=== PATIENT | female | born 1955 | race Caucasian/White ===

== ENCOUNTER 2020-08-29 09:56 | Outpatient (REF) | payer MEDICARE, SELFPAY ==
--- NOTE | 2020-08-29 10:03 | MM_ITS ---
EXAMINATION: MM SCREENING DIGITAL BREAST TOMOSYNTHESIS, BILATERAL CLINICAL INFORMATION: Screening. Asymptomatic. The lifetime risk of breast cancer based on the Tyrer-Cuzick Model is 3%. COMPARISON: Mammography: 06/27/2019, 06/23/2018, 05/01/2017, 04/16/2016, 03/28/2015 TECHNIQUE: Digital breast tomosynthesis is performed in both the craniocaudal and mediolateral oblique views along with computer-aided detection (CAD). Synthesized 2D images are generated from the tomosynthesis. FINDINGS: There are scattered areas of fibroglandular density (ACR BI-RADS breast composition Category b). There are no significant masses, abnormal calcifications, or other abnormalities. There is chronic nodular asymmetry posterior upper outer right breast similar to prior studies dating back to 2014. No developing density. The axilla and skin contours are unremarkable. MM/MM tomosynthesis screening BI IMPRESSION: No significant changes from prior studies. ASSESSMENT: BI-RADS 2: Benign RECOMMENDATION: Routine annual mammography screening. This patient's information was entered into a reminder system with a target due date for their next mammogram.
== END 2020-08-29 09:57 | disposition home or self-care (01) ==
LOC: HO.MAMMO 09:56
PROVIDERS: PCP Pediatrics; Visit Provider Pediatrics
DX: Z12.31 Encounter for screening mammogram for malignant neoplasm of breast (principal)
CPT/HCPCS: 77063; 77067

== ENCOUNTER 2021-09-10 07:56 | Outpatient (REF) | payer MEDICARE, SELFPAY ==
--- NOTE | ~2021-09-10 | MM_ITS ---
EXAMINATION: MM SCREENING DIGITAL BREAST TOMOSYNTHESIS, BILATERAL CLINICAL INFORMATION: Screening. Asymptomatic. The lifetime risk of breast cancer based on the Tyrer-Cuzick Model is 3%. COMPARISON: Mammography: 08/29/2020, 06/27/2019, 06/23/2018, 05/01/2017, 04/16/2016 TECHNIQUE: Digital breast tomosynthesis is performed in both the craniocaudal and mediolateral oblique views along with computer-aided detection (CAD). Synthesized 2D images are generated from the tomosynthesis. FINDINGS: There are scattered areas of fibroglandular density (ACR BI-RADS breast composition Category b). There is a fine fibronodular parenchymal pattern similar to prior exams. Chronic smooth nodular asymmetry again noted posterior upper outer right breast. There is no interval dominant nodule, architectural abnormality, developing density. No abnormal calcifications. The axilla and skin contours are unremarkable. No significant changes. MM/MM tomosynthesis screening BI IMPRESSION: No mammographic evidence of malignancy. ASSESSMENT: BI-RADS 2: Benign RECOMMENDATION: Routine annual mammography screening. This patient's information was entered into a reminder system with a target due date for their next mammogram.
== END 2021-09-10 07:57 | disposition home or self-care (01) ==
LOC: HO.MAMMO 07:56
PROVIDERS: PCP Pediatrics; Visit Provider Pediatrics
DX: Z12.31 Encounter for screening mammogram for malignant neoplasm of breast (principal)
CPT/HCPCS: 77063; 77067

== ENCOUNTER 2022-03-27 08:45 | Outpatient (REF) | payer MEDICARE, SELFPAY ==
--- NOTE | ~2022-03-27 | MM_ITS ---
EXAMINATION: BONE DENSITOMETRY CLINICAL INDICATION: Menopausal. COMPARISON: Previous BD dated 03/21/2020 and baseline BD dated 12/25/2006. TECHNIQUE: Using a [employer] DXA System (software version: 13.1) manufactured by [employer]), dual-energy x-ray absorptiometry was performed of the lumbar spine and left hip. The images are of good technical quality. Summary results are attached. FINDINGS: AP SPINE L1-L3 (excluding L4): The data of L1-L4 has been changed to exclude the L4 vertebral body, because hardware at this level may cause overestimation of lumbar spine density. Current: BMD 0.870 g/cm2, Z-score -0.5, T-score -2.5, osteoporosis, 4.2% decrease from previous, 4.2% decrease from baseline (<5% change is not significant). Prior: BMD 0.908 g/cm2. Baseline: BMD 0.908 g/cm2. LEFT FEMUR, NECK: Current: BMD 0.641 g/cm2, Z-score -1.1, T-score -2.9, osteoporosis. Prior: BMD 0.683 g/cm2. Baseline: BMD 0.737 g/cm2. LEFT FEMUR, TOTAL: Current: BMD 0.698 g/cm2, Z-score -0.9, T-score -2.5, osteoporosis, 7.5% decrease from previous, 10.1% decrease from baseline (<5% change is not significant). Prior: BMD 0.755 g/cm2. Baseline: BMD 0.776 g/cm2. IDENTIFIED RISK FACTORS: Osteoporosis, family history (parental hip fracture). Early menopause, secondary osteoporosis, hysterectomy, bilateral oophorectomy. HISTORY OF FRACTURE: None listed. MEDICATIONS: Calcium supplements or multivitamin, vitamin D. MM/XR DEXA axial skeleton IMPRESSION: 1. DIAGNOSIS: Osteoporosis based on the lowest T-score value of -2.9 in the femoral neck applying World Health Organization criteria. 2. 10-YEAR FRACTURE RISK PREDICTION, FRAX: According to the guidelines, FRAX calculation should only be performed on patients in the osteopenia bone density category. Therefore, FRAX was not performed on this patient. 3. Treatment Recommendations: NOF guidelines recommend consideration for treatment in postmenopausal women and men age 50 and older presenting with the following: -A hip or vertebral (clinical or morphometric) fracture. -T-score less than or equal to -2.5 at the femoral neck or spine after appropriate evaluation to exclude secondary causes. -Low bone mass at the hip or spine and a 10-year fracture probability by FRAX of greater than or equal to 3% for hip fracture or greater than or equal to 20% for major osteoporotic fracture based on the [place] adapted WHO algorithm. 4. Other Recommendations: All treatment decisions require clinical judgment and consideration of individual patient factors, including patient preferences, comorbidities, previous drug use, risk factors not captured in the FRAX model (e.g. frailty, falls, vitamin D deficiency, increased bone turnover, interval significant decline in bone density) and possible under or overestimation of fracture risk by FRAX. Additional medical evaluation for secondary cause of low bone mineral density may be appropriate. FUTURE SCAN RECOMMENDATION: People with diagnosed cases of osteoporosis or at high risk for fracture should have regular bone mineral density tests. For patients eligible for Medicare, routine testing is allowed once every 2 years. The testing frequency can be increased to one year for patients who have rapidly progressing disease, those who are receiving or discontinuing medical therapy to restore bone mass, or have additional risk factors.
== END 2022-03-27 08:46 | disposition home or self-care (01) ==
LOC: HO.MAMMO 08:45
PROVIDERS: PCP Pediatrics; Visit Provider Emergency Medicine
DX: Z13.820 Encounter for screening for osteoporosis (principal); M81.0 Age-related osteoporosis without current pathological fracture; Z78.0 Asymptomatic menopausal state
CPT/HCPCS: 77080

== ENCOUNTER 2022-09-17 09:07 | Outpatient (REF) | payer MEDICARE, SELFPAY ==
--- NOTE | ~2022-09-17 | MM_ITS ---
EXAMINATION: MM SCREENING DIGITAL BREAST TOMOSYNTHESIS, BILATERAL CLINICAL INFORMATION: Screening. Asymptomatic. The lifetime risk of breast cancer based on the Tyrer-Cuzick Model is 3%. COMPARISON: Mammography: 09/10/2021, 08/29/2020, 06/27/2019, 06/23/2018 TECHNIQUE: Digital breast tomosynthesis is performed in both the craniocaudal and mediolateral oblique views along with computer-aided detection (CAD). Synthesized 2D images are generated from the tomosynthesis. FINDINGS: There are scattered areas of fibroglandular density (ACR BI-RADS breast composition Category b). Breast tissue composition borders on heterogeneously dense. There is fine fibronodular parenchymal pattern similar to prior studies. No significant mass or developing density or architectural abnormality. No abnormal calcifications. There is chronic stable nodule posterior upper outer right breast on MLO view. Nodular asymmetry posterior lower outer right breast on CC view is slightly decreased. The axilla and skin contours are unremarkable. No significant changes. MM/MM tomosynthesis screening BI IMPRESSION: No mammographic evidence of malignancy. ASSESSMENT: BI-RADS 2: Benign RECOMMENDATION: Routine annual mammography screening. This patient's information was entered into a reminder system with a target due date for their next mammogram.
== END 2022-09-17 09:08 | disposition home or self-care (01) ==
LOC: HO.MAMMO 09:07
PROVIDERS: Visit Provider Pediatrics
DX: Z12.31 Encounter for screening mammogram for malignant neoplasm of breast (principal)
CPT/HCPCS: 77063; 77067

== ENCOUNTER → 2023-10-05 08:45 | Outpatient (BNV) | payer MEDICARE, SELFPAY | PROVIDERS: PCP Pediatrics; Visit Provider Radiology Diagnostic Radiology | DX: Z12.31 Encounter for screening mammogram for malignant neoplasm of breast (principal) | CPT/HCPCS: 77063; 77067 ==

== ENCOUNTER 2023-10-05 08:46 | Outpatient (REF) | payer MEDICARE, SELFPAY | END 2023-10-05 08:47 | disposition home or self-care (01) | LOC: HO.MAMMO 08:46 | PROVIDERS: PCP Pediatrics; Visit Provider Pediatrics | DX: Z12.31 Encounter for screening mammogram for malignant neoplasm of breast (principal) | CPT/HCPCS: 77063; 77067 ==

== ENCOUNTER 2024-07-13 08:38 | Outpatient (REF) | payer MEDICARE, SELFPAY ==
--- NOTE | ~2024-07-13 | MM_ITS ---
EXAMINATION: BONE DENSITOMETRY CLINICAL INDICATION: Age-related osteoporosis without current pathological fracture. COMPARISON: Previous BD dated 03/27/2022 and baseline BD dated 12/25/2006. TECHNIQUE: Using a [employer] DXA System (software version: 13.1) manufactured by [employer], dual-energy x-ray absorptiometry was performed of the lumbar spine and left hip. The images are of good technical quality. Summary results are attached. FINDINGS: LEFT FEMUR, NECK: Current: BMD 0.619 g/cm2, Z-score -1.2, T-score -3.0, osteoporosis. Prior: BMD 0.641 g/cm2. Baseline: BMD 0.737 g/cm2. LEFT FEMUR, TOTAL: Current: BMD 0.663 g/cm2, Z-score -1.2, T-score -2.7, osteoporosis, 5.0% decrease from previous, 14.6% decrease from baseline (<5% change is not significant). Prior: BMD 0.698 g/cm2. Baseline: BMD 0.776 g/cm2. AP SPINE L1-L3 (excluding L4): The data of L1-L4 has been changed to exclude the L4 vertebral body, because hardware at this level may cause overestimation of lumbar spine density. Current: BMD 0.899 g/cm2, Z-score -0.4, T-score -2.3, osteopenia, 3.3% increase from previous, 1.0% decrease from baseline (<5% change is not significant). Prior: BMD 0.870 g/cm2. Baseline: BMD 0.908 g/cm2. IDENTIFIED RISK FACTORS: Osteoporosis, parental hip fracture. Early menopause, secondary osteoporosis, hysterectomy, bilateral oophorectomy. HISTORY OF FRACTURE: None listed. MEDICATIONS: Calcium supplements or multivitamin, vitamin D. MM/XR DEXA axial skeleton IMPRESSION: 1. DIAGNOSIS: Osteoporosis based on the lowest T-score value of -3.0 in the femoral neck applying World Health Organization criteria. 2. 10-YEAR FRACTURE RISK PREDICTION, FRAX: According to the guidelines, FRAX calculation should only be performed on patients in the osteopenia bone density category. Therefore, FRAX was not performed on this patient. 3. Treatment Recommendations: NOF guidelines recommend consideration for treatment in postmenopausal women and men age 50 and older presenting with the following: -A hip or vertebral (clinical or morphometric) fracture. -T-score less than or equal to -2.5 at the femoral neck or spine after appropriate evaluation to exclude secondary causes. -Low bone mass at the hip or spine and a 10-year fracture probability by FRAX of greater than or equal to 3% for hip fracture or greater than or equal to 20% for major osteoporotic fracture based on the [place] adapted WHO algorithm. 4. Other Recommendations: All treatment decisions require clinical judgment and consideration of individual patient factors, including patient preferences, comorbidities, previous drug use, risk factors not captured in the FRAX model (e.g. frailty, falls, vitamin D deficiency, increased bone turnover, interval significant decline in bone density) and possible under or overestimation of fracture risk by FRAX. Additional medical evaluation for secondary cause of low bone mineral density may be appropriate. FUTURE SCAN RECOMMENDATION: People with diagnosed cases of osteoporosis or at high risk for fracture should have regular bone mineral density tests. For patients eligible for Medicare, routine testing is allowed once every 2 years. The testing frequency can be increased to one year for patients who have rapidly progressing disease, those who are receiving or discontinuing medical therapy to restore bone mass, or have additional risk factors. Electronically signed by: Linda Yepez MD 07/13/2024 11:53 AM DON[facility]
== END 2024-07-13 08:39 | disposition home or self-care (01) ==
LOC: HO.MAMMO 08:38
PROVIDERS: PCP Pediatrics; Visit Provider Pediatrics
DX: M81.0 Age-related osteoporosis without current pathological fracture (principal)
CPT/HCPCS: 77080

== ENCOUNTER 2024-10-26 08:14 | Outpatient (REF) | payer MEDICARE, SELFPAY ==
--- OUTSIDE RECORDS SUMMARY | 2024-10-26 08:36 | XMS_ITS | Data Portability ---
Author Organization [facility], [facility] Address [address] [place] [address] Care Team Providers Care Appointment Specialist Name Role Phone CINTHYA POOL Primary Care Provider Assessment Encounter Date Assessment Date Assessment LastModified by Organization Details LastModified Time 04/21/2024 04/21/2024 CHIEF COMPLAINT: Postop left foot HISTORY OF PRESENT ILLNESS: Priscilla is a very pleasant 68-year-old woman who is 6 weeks status post ORIF of left fifth metatarsal base fracture with plate screw construct. She is doing very well. She has been nonweightbearing in a tall CAM boot, crutches. She denies any fevers, chills or paresthesias. She has some numbness around the incision over the lateral aspect of her foot. She also has some swelling that improves with elevation. She otherwise has no complaints. Past family, medical, social history and review of systems has been reviewed and is located in the patient? s chart. PHYSICAL EXAM: Musculoskeletal: With boot removed, her incision is well-healed. There is mild swelling without infectious changes. There is diminished sensation over the incision and just distal to the incision and she is otherwise distally neurovascularly intact. Hardware is not prominent or tender. There is no gross motion about the fracture site. Her calf is soft and nontender. X-RAYS: Three standing views of the left foot were ordered, obtained and reviewed by me today at [facility], demonstrating interval healing of her fifth metatarsal base fracture such that the fracture line is a longer visible. Hardware is intact and well positioned. IMPRESSION: 6 weeks postop, doing well PLAN: She is doing very well at this time. I reassured her that her swelling will improve with time. She may begin to weight-bear in the boot as tolerated. She may transition from the boot to a sneaker in 1-2 weeks as comfort and swelling allow. She understands to avoid any running or jumping activity until after follow-up in 7-8 weeks. She will need repeat x-rays on arrival. She will work on ankle, hindfoot and MTP range of motion exercises, which were demonstrated today. All questions were answered. She understands and agrees with this plan. [email or web address] Not available 04/21/2024 15:03:02 09/30/2024 09/30/2024 ICD-10: Left foot prominent fifth metatarsal hardware, bilateral hallux valgus CHIEF COMPLAINT: Left foot pain HISTORY OF PRESENT ILLNESS: Priscilla is a very pleasant 69-year-old woman seen today in follow-up who is almost 7 months status post ORIF of left fifth metatarsal base fracture with plate and screw construct. She is doing very well. She comes in today as she is concerned that her hardware is somewhat prominent and that there may be a screw loose. She denies any injury. She reports intermittent 3/10 pain. She has bilateral severe bunions but denies significant pain over her medial eminences. She feels her bunions cause her to walk differently and put more weight on her fifth metatarsals. She is here today for repeat x-rays and reassurance. She has been active. Past family, medical, social history and review of systems has been reviewed, updated and is located in the patient? s chart. She has osteopenia. PHYSICAL EXAM: General: healthy appearing, in no acute distress Psych: alert and oriented x3, normal mood Skin: intact without ulceration or lesion, normal turgor Lungs: respirations unlabored Cardiac: heart rate regular, normal peripheral pulses Musculoskeletal: On standing exam, she has bilateral moderate to severe hallux valgus deformities. On seated exam, she has a well-healed lateral fifth metatarsal base incision. Hardware is prominent and minimally tender. I do not feel any prominence individual screws. She has normal function of her peroneal tendons with full strength with resisted hindfoot eversion. Her hallux valgus deformity is partially passively correctable. There is a prominent medial eminence without significant tenderness. She is distally neurovascularly intact. X-RAYS: Three standing views of the left foot were ordered, obtained and reviewed by me today at [facility], demonstrating healed fifth metatarsal base fracture with bridging bone, intact well positioned hardware. I see no evidence of any interval loosening or change in position of her hardware. She has a severe incongruent hallux valgus deformity with widened SOFIE and lateral sesamoid subluxation IMPRESSION: Left foot prominent fifth metatarsal hardware, bilateral hallux valgus PLAN: I discussed these findings with the patient. Her hardware is prominent as this is a subcutaneous area but I do not believe any of her screws have backed out. She is happy to hear this and like to continue with observation/conser vative treatment. If her hardware becomes more bothersome, I would recommend hardware removal. If her bunions become more bothersome, I would recommend either MTP fusion or a Lapidus procedure, 1 foot at a time. This was discussed with her today. I discussed with her the nature and magnitude of the surface. She would be able to weight-bear in a CAM boot following hardware removal surgery. All questions were answered. [email or web address] Not available 09/30/2024 10:18:28 Plan of Treatment Reminders Order Date Submit Date Provider Last Modified By Organization Details Last Modified Time Details Appointments None recorded. Lab None recorded. Referral None recorded. Procedures None recorded. Surgeries None recorded. Imaging XR, foot, 3 or more view - RM 108 -- RECHECK 3V FOOT WB 025 025 [facility], [address], [place], [address], 5 10:56:48 XR, foot, 3 or more view - 316 3v left foot 024 024 [place] [address] CPM [facility], [address], [address], [place], [address], 4 12:37:13 XR, foot, 3 or more view - RM 108--post op 3V FOOT WB 024 024 [facility], [address], [place], [address], 4 08:39:34 XR, foot, 3 or more view - rm 316 3v left foot 024 024 [email or web address] [facility], [address], [facility] [address], [place], [address], 14:21:48 Medication Orders None recorded. Patient TargetsNo targets recorded. Patient Instructions Encounter Date Encounter Id Patient Instructions Last Modified By Organization Details Last Modified Time 03/11/2024 [id number] application of splint, short leg* - rm 316 left short leg splint with side posterior nwb xeroform on inscision [email or web address] Not available 03/11/2024 16:41:04 Reason for Referral None Reported. Results Created Date Observation Date Name Description Value Unit Range Abnormal Flag Note LastModifiedBy Organization Detail LastModifiedTime 03/07/20 24 03/04/2024 imagi ng inter preta tion No observ ation record ed. [email or web address] [address], [address], 03/07/2024 09:46:52 03/07/20 24 03/04/2024 imagi ng inter preta tion No observ ation record ed. [email or web address] [address], [address], 03/07/2024 09:46:42 03/07/20 24 03/04/2024 emerg ency dept. visit * No observ ation record ed. [address], [address], 03/07/2024 11:00:42 03/08/20 24 03/04/2024 XR, foot, 3 or more view No observ ation record ed. [email or web address] Not Available 2023 07:28:40 03/11/20 24 03/11/2024 XR, foot, 3 or more view [email or web address] ?Encry pted=s hAaTro YD8dLq bEUv6g %2BXZw aYqtaq 0bqfl% 2Fg9IQ a4ajBk vP9nXo QUaueC m3YtLR FvZlgJ JJ8mAn HZtai3 5w2619 AC0Koa 3qAVqv eUC8mr 84%3D INTERFACE [facility] [address], [place], [address], 03/11/2024 14:29:50 03/11/20 24 03/11/2024 XR, foot, 3 or more view [email or web address] ?Encry pted=s hAaTro YD8dLq bEUv6g %2BXZw aYqtaq 0bqfl% 2Fg9IQ a4ajBk vP9nXo QUaueC m3YtLR FvZlgJ JJ8mAn HZtai3 3r9359 AC0Koa 3qAVqv eUC8mr 84%3D INTERFACE [facility] [address], [place], [address], 03/11/2024 14:29:51 04/16/20 24 08/08/2021 imagi ng/di agnos tic resul t No observ ation record ed. [email or web address] Not Available 03/19 02:51:40 04/16/20 24 08/13/2021 imagi ng/di agnos tic resul t No observ ation record ed. [email or web address] Not Available 03/19 02:51:41 04/21/20 24 04/21/2024 XR, foot, 3 or more view [email or web address] ?Encry pted=s hAaTro YD8dLq bEUv6g %2BXZw aYqtaq 0bqfl% 2Fg9IQ a4ajBk vP9nXo QUaueC m3YtLR FvZlgJ JJ8mAn HZtai3 3a8577 AC0Kqa n2AWae iKiQtr MwF INTERFACE [facility] [address], [place], [address], 04/21/2024 14:43:26 04/21/20 24 04/21/2024 XR, foot, 3 or more view [email or web address] ?Encry pted=s hAaTro YD8dLq bEUv6g %2BXZw aYqtaq 0bqfl% 2Fg9IQ a4ajBk vP9nXo QUaueC m3YtLR FvZl JJ8Tecumseh HZtai3 9n4608 AC0Kqa n2AWae iKiQtr MwF INTERFACE [facility] [address], [place], [address], 04/21/2024 14:43:28 06/16/20 24 06/16/2024 XR, foot, 3 or more view [email or web address] ?Encry pted=s hAaTro YD8dLq bEUv6g %2BXZw aYqtaq 0bqfl% 2Fg9IQ a4ajBk vP9nXo QUaueC m3YtLR FvZl JJ8Tecumseh HZtai3 1j4793 AC0Kqa H6MUqu nKiQtr MwF INTERFACE [facility] [address] [facility] [address], [place], [address], 06/16/2024 11:15:35 06/16/20 24 06/16/2024 XR, foot, 3 or more view [email or web address] ?Encry pted=s hAaTro YD8dLq bEUv6g %2BXZw aYqtaq 0bqfl% 2Fg9IQ a4ajBk vP9nXo QUaueC m3YtLR FvZl JJ8mAn HZtai3 9l6665 AC0Kqa H6MUqu nKiQtr MwF INTERFACE [facility] [address], [place], [address], 06/16/2024 11:15:37 09/30/19 25 09/30/2024 XR, foot, 3 or more view [email or web address] ?Encry pted=s hAaTro YD8dLq bEUv6g %2BXZw aYqtaq 0bqfl% 2Fg9IQ a4ajBk vP9nXo QUaueC m3YtLR FvZlgJ JJ8mAn HZtai3 3z1397 AC0Kqb HSHVKq kKiQtr MwF INTERFACE [facility] [address], [place], [address], 09/30/2024 10:07:07 09/30/19 25 09/30/2024 XR, foot, 3 or more view [email or web address] ?Encry pted=s hAaTro YD8dLq bEUv6g %2BXZw aYqtaq 0bqfl% 2Fg9IQ a4ajBk vP9nXo QUaueC m3YtLR FvZlgJ JJ8mAn HZtai3 5k9514 AC0Kqb HSHVKq kKiQtr MwF INTERFACE [facility] [address], [place], [address], 09/30/2024 10:07:09 Result Notes None recorded. Procedures Surgical History Date Name Laterality Status Provider Name and Address Organization Details Recorded Time 4 Other completed FERNANDO PAULA [facility] 09/30/2024 10:03:49 2 Spine Surgery completed Eric Julio MA [facility] Dorothy wa [facility] 03/11/2024 14:21:21 3 Shoulder Surgery completed Eric Julio [facility] 03/11/2024 14:21:21 0 Other completed Eric Julio MA [facility] Rafael [facility] 03/11/2024 14:21:22 0 Spine Surgery completed Eric Julio MA Tulio De La Cruz wa [facility] 03/11/2024 14:21:21 0 Other completed Eric Julio [place] - Tulio tirado [facility] 03/11/2024 14:21:22 Imaging Results Imaging Date Name Status LastModified by Organization Details LastModified Time 03/04/2024 imaging interpretation completed [address], [address], 03/07/2024 09:46:52 03/04/2024 imaging interpretation completed [address], [address], 03/07/2024 09:46:42 03/04/2024 emergency dept. visit* completed [address], [address], 03/07/2024 11:00:42 03/04/2024 XR, foot, 3 or more view completed [email or web address] Information not available 03/08/2024 07:28:40 03/11/2024 XR, foot, 3 or more view completed [facility] [address], [place], [address], 03/11/2024 14:29:50 03/11/2024 XR, foot, 3 or more view completed INTERFACE [facility] [address], [place], [address], 03/11/2024 14:29:51 08/08/2021 imaging/diagnostic result completed Information not available 04/16/2024 02:51:40 08/13/2021 imaging/diagnostic result completed Information not available 04/16/2024 02:51:41 04/21/2024 XR, foot, 3 or more view completed INTER[facility] [address], [place], [address], 04/21/2024 14:43:26 04/21/2024 XR, foot, 3 or more view completed INTERFACE [facility] [address], [place], [address], 04/21/2024 14:43:28 06/16/2024 XR, foot, 3 or more view completed INTERFACE [facility] [address], [place], [address], 06/16/2024 11:15:35 06/16/2024 XR, foot, 3 or more view completed INTERFACE [facility] [address], [place], [address], 06/16/2024 11:15:37 09/30/2024 XR, foot, 3 or more view completed INTERFACE [facility] [address], [place], [address], 09/30/2024 10:07:07 09/30/2024 XR, foot, 3 or more view completed INTERFACE [facility] [address], [place], [address], 09/30/2024 10:07:09 Procedure Notes None recorded. Medical Equipment None Reported. Allergies Allergen ID Allergen Name Allergen Category Reaction Reaction Severity Criticality Documentation Date Start Date Code Code System Note Provider Name and Address Organization Details Recorded Time 075779 lorazepam medicatio n itching severe Not available 03/08/2024 6470 RxNorm [facility] 4 09:16:36 484155 adhesive tape environme nt,medica tion itching rash severe severe Not available 03/08/20242021 62817 UNK [facility] henderson [facility] 4 09:16:36 65398 tramadol hydrochlo ride medicatio n Not available Not available Not available 10/19/20232011 09238 RxNorm Aller gyRea ction : 'Skin React ion'; Not Available [facility] 15:00:19 75525 codeine medicatio n Not available Not available Not available 10/19/20232011 2670 RxNorm Aller gyRea ction : 'Skin React ion'; Not Available [facility] 4 15:00:19 37088 gabapenti n medicatio n Not available Not available Not available 10/19/20232021 69995 RxNorm Not Available [facility] 4 15:00:19 38958 wheat gluten extract food Not available Not available Not available 10/19/20232021 59899 81 RxNorm Not Available [facility] 4 15:00:19 Medications Name Sig Start Date Stop Date Status Note LastModified by Organization Details LastModified Time celecoxib 200 mg capsule active Not Available Not Available Not Available prednisone 10 mg tablet 06/16 completed Not Available Not Available Not Available prednisone 20 mg tablet 06/16 completed Not Available Not Available Not Available metronidazo le 500 mg tablet TAKE 1 TABLET BY MOUTH THREE TIMES A DAY FOR 10 DAYS 09/28 completed Not Available Not Available Not Available acetaminoph en 500 mg tablet TAKE 2 TABLETS BY MOUTH EVERY 8 HOURS FOR 15 DAYS active Not Available Not Available No t Available hydromorpho ne 2 mg tablet Take 1 tablet every 4-6 hours by oral route for 5 days. 06/16 completed Not Available Not Available Not Available aspirin 325 mg tablet,lno yed release TAKE 1 TABLET BY MOUTH EVERY DAY FOR 30 DAYS 06/16 completed Not Available Not Available Not Available albuterol sulfate HFA 90 mcg/actuati on aerosol inhaler active Not Available Not Available Not Available morphine 15 mg immediate release tablet 06/16 completed Not Available Not Available Not Available ondansetron 4 mg disintegrat ing tablet DISSOLVE 1 TABLET ON THE TONGUE EVERY 8 HOURS FOR 7 DAYS 06/16 completed Not Available Not Available Not Available cyclobenzap rine 5 mg tablet 06/16 completed Not Available Not Available Not Available Vitamin D3 125 mcg (5,000 unit) tablet TAKE 1 TABLET BY MOUTH EVERY DAY active Not Available Not Available No t Available Arnuity Ellipta 100 mcg/actuati on powder for inhalation active Not Available Not Available N ot Available Repatha Pushtronex 420 mg/3.5 mL subcutaneou s wearable injector active Not Available Not Available Not Available Vitals Date Recorded Body height Body mass index (BMI) Body weight Provider Name and Address Organization Details Last Updated DateTime 03/11/2024 157.48 cm 22.9 kg/m2 19749.05 g Eric Julio [facility] 03/11/2024 14:21:32 Date Recorded Body height Body mass index (BMI) Body weight Provider Name and Address Organization Details Last Updated DateTime 03/24/2024 157.48 cm 22.9 kg/m2 53573.05 g Tracy Friedmango [facility] 03/24/2024 09:26:54 Date Recorded Body height Body mass index (BMI) Body weight Provider Name and Address Organization Details Last Updated DateTime 04/21/2024 157.48 cm 22.9 kg/m2 34610.05 g FERNANDO Smith [facility] 04/21/2024 15:06:29 Date Recorded Body height Body mass index (BMI) Body weight Provider Name and Address Organization Details Last Updated DateTime 06/16/2024 157.48 cm 23.6 kg/m2 17596.42 g DOUGLAS KIRBY [facility] 06/16/2024 11:07:20 Date Recorded Body height Body mass index (BMI) Body weight Provider Name and Address Organization Details Last Updated DateTime 09/30/2024 157.48 cm 23.6 kg/m2 95211.42 g FERNANDO Smith [facility] 09/30/2024 10:03:59 Social History Question Answer Notes LastModified by Organizat ion Details LastModified Time Tobacco Smoking Status Never Smoker FERNANDO henderson [facility] 03/08/2024 09:17:05 How Many Times Per Week Do You Consume Alcohol? Less Than 1 Time Per Week Information not available 03/08/2024 Do You Or Have You Ever Used E-cigarettes Or Vape? Never Used Electronic Cigarettes Information not available 03/08/2024 What Is Your Relationship Status? Domestic Partner Information not available 03/08/2024 Do You Use Any Illicit Or Recreational Drugs? No Information not available 03/08/2024 Do You Or Have You Ever Used Any Other Forms Of Tobacco Or Nicotine? No Information not available 03/08/2024 Sex: Unknown Functional Status None recorded. Mental Status None recorded. Family History Nothing Reported. Medical History Condition Response Asthma Y Gynecological HistoryNo gynecological history recorded. Obstetrics History GPAL:G 0 P 0 0 0 0 Past Encounters Encounter ID Performer Location Encounter Start Date Encounter Closed Date Diagnosis/Indication Diagnosis SNOMED-CT Code Diagnosis ICD10 Code Diagnosis Note [id number] MD Lester Gillespie [address] [place], [place] [address] 03/08/2024 08:59:54 04/05/2024 11:54:22 Pain in left foot 9784220262 02936 M79.672 Closed fra cture of fifth metatarsal bone of left foot 7161872642 8355831 S92.352A [id number] Kristin Dawkins PA-C [facility] [address] [place], [place] [address] 03/11/2024 13:45:24 03/31/2024 14:21:48 Stress fracture of navicular bone of left foot 9729941207 2002700 M84.375D [id number] SHANT Goodwin [address] [place], [place] [address] 03/24/2024 09:10:00 04/27/2024 11:24:39 Postoperative care 209591096 Z48.89 [id number] MD L[facility] Gillespie [address] [place], [place] [address] 04/21/2024 14:21:53 05/12/2024 08:39:34 Foot pain 56557842 M79.672 Postoperative visit 1836 01398 Z48.89 [id number] Kristin Dawkins PA-C [facility] [address] [place], [place] [address] 06/16/2024 10:27:45 07/12/2024 09:51:49 Pain in left foot 1799905738 [facility] M79.078 [id number] Theron Tamez MD [facility] - [facility] [address] [place], [place] [address] 09/30/2024 09:57:41 10/19/2024 10:56:48 Pain in left foot 2785733140 07125 M79.672 Pain 73843852 T84.84X A Bilateral hallux valgus 9196734182 M20.11 M20.12 Health Concerns Section Related Observation LastModified by Organization Detai ls LastModified Time None Recorded Concern Status LastModified by Organization Details LastModified Time None Recorded Advance Directives Directive None Recorded Payers Encounter Date Sequence Insurance Name Policy Number Policy Lin Covered Member ID Lin Member ID Guarantor Name 03/11/2024 1 [place] [employer] Priscilla M Berezin [id number] Priscilla M Berezin 03/11/2024 2 [place] [id number] Priscilla M Berezin [id number] Priscilla M Berezin 03/24/2024 1 [place] Priscilla M Berezin [id number] Priscilla M Berezin 03/24/2024 2 [place] [id number] Priscilla M Berezin [id number] Priscilla M Berezin 04/21/2024 1 [place] Priscilla M Berezin [id number] Priscilla M Berezin 04/21/2024 2 [place] [id number] Priscilla M Berezin [id number] Priscilla M Berezin 06/16/2024 1 [place] Priscilla M Berezin [id number] Priscilla M Berezin 06/16/2024 2 [place] [id number] Priscilla M Berezin [id number] Priscilla M Berezin 09/30/2024 1 [place] Priscilla M Berezin [id number] Priscilla M Berezin 09/30/2024 2 [place] [id number] Priscilla M Berezin [id number] Priscilla M Berezin Notes Date Note Type Note Provider Name and Address Organization Details Recorded Time 03/11/2024 text/html I am seeing this patient under the supervision of [Dr. Reyes], who was available but who did not see the patient.HPI: Patient is a [68-year-old female] presenting today 2 days status post [ORIF left 5th metatarsal base fracture]. Date of surgery [03/09/24]. She is here today because she fell last night. She wants to ensure everything still looks fine. Taking aspirin for DVT prophylaxis. Denies any fevers, chills, or paresthesias.PFMSH, Meds and ROS reviewed, updated and signed by me, and is located in the patient's chart.PHYSICAL EXAMINATION: The patient is well appearing and in no apparent distress. Alert and oriented x 3. Examination of the [left] foot and ankle reveals well healing surgical incision with sutures in place. Postoperative swelling as to be expected. No erythema or warmth. No evidence of infectious changes. Calf soft, nontender. Sensation intact to light touch in the [left] lower extremity.XRAYS ordered, obtained and reviewed independently today at [facility]: [3 view x-rays of the left foot reveal ORIF left 5th metatarsal base fracture. Fracture is well aligned. No hardware complication noted].IMPRESSION: 2 days status post surgery as above status post fall last nightPLAN: Discussed the findings and situation with the patient today. Patient was reassured that her x-rays look good and incisions look good as well. She will continue nonweightbearing in a splint, she was placed in another splint today. She will follow-up as scheduled for her postop visits, first 1 being in about 2 weeks. Continue with aspirin for DVT prophylaxis. Call with questions or concerns. Patient understands and agrees with this plan. All questions were answered.Speech recognition welder fitter apprentice software was used to create portions of this document. An attempt at proofreading has been made to minimize errors. Please call for corrections. Kristin Dawkins PA-C [address] [place] [address], [place], [address], [facility] 03/11/2024 15:07:43 03/24/2024 text/html I am seeing this patient under the supervision of Dr. Bauman who was available but who did not see the patient.HPI: Patient is 2 weeks status post ORIF left 5th metatarsal base fracture with Dr. Tamez. Date of surgery 03/09/24. Has been compliant with nonweightbearing restrictions thus far. Did have a fall onto her splint a couple of days postop. She was seen by my colleague and x-rays revealed stable. She is having minimal pain. Denies any fevers, chills, or paresthesias.PFMSH, Meds and ROS reviewed, updated and signed by me, and is located in the patient's chart.PHYSICAL EXAMINATION: The patient is well appearing and in no apparent distress. Alert and oriented x 3. Examination of the left foot and ankle reveals well healing surgical incision with sutures in place. Postoperative swelling as to be expected. No erythema or warmth. No evidence of infectious changes. Calf soft, nontender. Sensation intact to light touch in the left lower extremity.XRAYS previously ordered reviewed independently today at [facility]: 3 view x-rays of the left foot reveal ORIF left 5th metatarsal base fracture. Fracture is well aligned. No hardware complication noted.IMPRESSION: 2 weeks status post surgery as above, stablePLAN: Discussed the findings and situation with the patient today. Sutures removed and Steri-Strips placed by myself today. Recommend transition to her tall cam boot. She prefers this to the cast and brought it with her today. She understands the importance of wearing the boot and remaining nonweightbearing until her next visit in 4 weeks. May remove for showers. Continue to elevate. Call if any concernsSpeech recognition welder fitter apprentice software was used to create portions of this document. An attempt at proofreading has been made to minimize errors. Please call for corrections. Barbara Nix PA-C [address] [place] [address] [address] [facility], [place], [address], [facility] - [facility] 03/24/2024 15:12:18 06/16/2024 text/html I am seeing this patient under the supervision of Dr. Stein, who was available but who did not see the patient.HPI: Patient is a 68-year-old female presenting today 3 months status post ORIF left 5th metatarsal base fracture. Date of surgery 03/09/24. She has transitioned to regular shoewear. 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 Denies any fevers, chills, or paresthesias.PFMSH, Meds and ROS reviewed, updated and signed by me, and is located in the patient's chart.PHYSICAL EXAMINATION: The patient is well appearing and in no apparent distress. Alert and oriented x 3. Examination of the left foot and ankle reveals well healed surgical incision. No edema, erythema or warmth. No evidence of infectious changes. Calf soft, nontender. Sensation intact to light touch in the left lower extremity. Full range of motion left ankle and digits. Mildly tender around the ATFL, otherwise nontender about the rest of the foot and ankle.XRAYS ordered, obtained and reviewed independently today at [facility]: 3 view x-rays of the left foot reveal ORIF left 5th metatarsal base fracture which has healed. No hardware complication noted.IMPRESSION: 3 months status post surgery as abovePLAN: Discussed the findings and situation with the patient today. Patient is doing very well at this time. I offered her physical therapy for the ankle but she states she would like to continue with exercises at home for now. She was provided with a prescription for an ankle brace which she may wear intermittently as needed. She will follow-up with us on an as-needed basis. Patient understands and agrees with this plan. All questions were answered.Speech recognition welder fitter apprentice software was used to create portions of this document. An attempt at proofreading has been made to minimize errors. Please call for corrections. Kristin Dawkins PA-C [address] [place] [address] [address], [place], [address], [facility] - [facility] 06/16/2024 12:05:31 OBGyn Episode No OBEpisode recorded.
--- OUTSIDE RECORDS SUMMARY | 2024-10-26 08:36 | XMS_ITS | Continuity of Care Document ---
Author Organization [place] - [facility], PATITO Ledyhussain 1st Floor Address [address] [place] [address] Care Team Providers Care Transfill Technician Name Role Phone CINTHYA POOL Primary Care Provider [phone] Assessment Encounter Date Assessment Date Assessment LastModified by Organization Details LastModified Time 09/30/2024 09/30/2024 ICD-10: Left foot prominent fifth [...] obtained and reviewed by me today at [facility], demonstrating healed fifth metatarsal base fracture [...] XR, foot, 3 or more view - 108 -- RECHECK 3V FOOT [facility] 025 [facility]25 [facility], [address], [facility] [address], [place], [address], 5 10:56:48 Medication Orders None recorded. Patient TargetsNo targets recorded. Patient InstructionsNo instructions recorded. Reason for Referral None Reported. Results Created Date Observation Date Name Description Value Unit Range Abnormal Flag Note LastModifiedBy Organization Detail LastModifiedTime 09/30/19 25 09/30/2024 XR, foot, 3 or more view [email or web address] ?Encry pted=s hAaTro YD8dLq bEUv6g %2BXZw aYqtaq 0bqfl% 2Fg9IQ a4ajBk vP9nXo QUaueC m3YtLR FvZlgJ JJ8mAn HZtai3 [id number] AC0Kqb HSHVKq kKiQtr MwF INTERFACE [facility] [address], [place], [address], 09/30/2024 10:07:07 09/30/19 25 09/30/2024 XR, foot, 3 or more view [email or web address] ?Encry pted=s hAaTro YD8dLq bEUv6g %2BXZw aYqtaq 0bqfl% 2Fg9IQ a4ajBk vP9nXo QUaueC m3YtLR FvZlgJ JJ8mAn HZtai3 [id number] AC0Kqb HSHVKq kKiQtr MwF INTERFACE [facility] [address], [place], [address], 09/30/2024 10:07:09 Result Notes None recorded. Procedures Surgical History Date Name Laterality Status Provider Name and Address Organization Details Recorded Time 4 Other completed FERNANDO PAULA [facility] 09/30/2024 10:03:49 2 Spine Surgery completed Eric De La Cruz [facility] 03/11/2024 14:21:21 3 Shoulder Surgery completed Eric Julio [facility] 03/11/2024 14:21:21 0 Other completed Eric Julio MA [facility] 03/11/2024 14:21:22 0 Spine Surgery completed Eric De La Cruz [facility] 03/11/2024 14:21:21 0 Other completed Eric Julio [place] [facility] 03/11/2024 14:21:22 Imaging Results None recorded. Procedure Notes None recorded. Medical Equipment None Reported. Allergies Allergen ID Allergen Name Allergen Category Reaction Reaction Severity Criticality Documentation Date Start Date Code Code System Note Provider Name and Address Organization Details Recorded Time 866148 lorazepam medicatio n itching severe Not available 03/08/2024 6470 Rx[facility] 4 09:16:36 851974 adhesive tape environme nt,medica tion itching rash severe severe Not available 03/08/20242021 80080 UNK [facility] 4 09:16:36 03636 tramadol hydrochlo ride medicatio n Not available Not available Not available 10/19/20232011 26414 RxNorm Aller gyRea ction : 'Skin React ion'; Not Available [facility] 4 15:00:19 48594 codeine medicatio n Not available Not available Not available 10/19/20232011 2670 RxNorm Aller gyRea ction : 'Skin React ion'; Not Available [facility] 4 15:00:19 38945 gabapenti n medicatio n Not available Not available Not available 10/19/20232021 76213 RxNorm Not Available [facility] 4 15:00:19 47824 wheat gluten extract food Not available Not available Not available 10/19/20232021 81066 81 RxNorm Not Available [facility] 4 15:00:19 Medications Name Sig Start Date [...] Not Available Not Available aspirin 325 mg tablet,lon yed release TAKE 1 TABLET BY MOUTH [...] Updated DateTime 09/30/2024 157.48 cm 23.6 kg/m2 32737.42 g FERNANDO Smith [facility] 09/30/2024 10:03:59 Social History Question Answer Notes LastModified by Organizat ion Details LastModified Time Tobacco Smoking Status Never Smoker FERNANDO henderson [facility] 03/08/2024 09:17:05 How Many Times Per Week [...] SNOMED-CT Code Diagnosis ICD10 Code Diagnosis Note [id number] [facility] [address] [address] [place] [address] 09/30/2024 09:57:41 10/19/2024 10:56:48 Pain in left foot 9307407880 06189 M79.672 Pain 25037563 T84.84X A Bilateral hallux valgus 6682820671 M20.11 M20.12 Health Concerns Section Related Observation LastModified by Organization Detai ls LastModified Time None Recorded Concern Status LastModified by Organization Details LastModified Time None Recorded Payers Encounter Date Sequence Insurance Name Policy Number Policy Lin Covered Member ID Lin Member ID Guarantor Name 09/30/2024 1 [place] [employer] Prisclila M Berjagrutiin [id number] Priscilla M Berezin 09/30/2024 2 [place] [id number] Priscilla M Berezin [id number] Priscilla M Berezin OBGyn Episode No OBEpisode recorded.
== END 2024-10-26 08:15 | disposition home or self-care (01) ==
LOC: HO.MAMMO 08:14
PROVIDERS: PCP Pediatrics; Visit Provider Pediatrics
DX: Z12.31 Encounter for screening mammogram for malignant neoplasm of breast (principal)
CPT/HCPCS: 77063; 77067

== ENCOUNTER → 2024-10-26 08:15 | Outpatient (BNV) | payer MEDICARE, SELFPAY | PROVIDERS: PCP Pediatrics; Visit Provider Internal Medicine | DX: Z12.31 Encounter for screening mammogram for malignant neoplasm of breast (principal) | CPT/HCPCS: 77063; 77067 ==